=== PATIENT | male | born 1985 | race Caucasian/White ===

== ENCOUNTER 2017-04-29 06:17 | Emergency (ER) | payer OTHER ==
--- NOTE | 2017-04-29 08:12 | DIAGNOSTIC IMAGING REPORT ---
PROCEDURE: CT ABDOMEN/PELVIS W/O CONTRAST INDICATION: Left flank pain. TECHNIQUE: Noncontrast axial images were obtained of the entire abdomen and pelvis with sagittal and coronal reformations. COMPARISON: None. FINDINGS: ABDOMEN: 1.5 mm left UVJ calculus with mild left hydroureteronephrosis. No additional urinary calculi. Lung bases are clear. Normal heart size. Liver, gallbladder, pancreas, spleen, adrenal glands and abdominal aorta are normal. Nonspecific bowel gas pattern. PELVIS: Appendix not visualized. Normal prostate and bladder . Bones are unremarkable. IMPRESSION: 1. 1.5 mm left UVJ calculus with mild left hydroureteronephrosis 2. Results discussed with Dr. Murphy All CT scans at this facility use dose modulation, iterative reconstruction, and/or weight-based dosing when appropriate to reduce radiation dose to as low as reasonably achievable.
--- NOTE | 2017-04-29 08:44 | ED NURSING NOTES ---
Clinical Report - Nurses [facility] [address] [place] [address] 04/29/2017 6:18 Patient: STEF ARGUETA TRIAGE Triage time 06:29. Acuity: LEVEL 3. Chief Complaint: URINARY RETENTION. --06:32 Sheriff Cordero R.N. 06:25 04/29/17. BP: 193/35. HR: 78. RR: 18. O2 saturation: 99%. Temp: 97.7 F. Pain level now: 04/24. --06:32 Sheriff Cordero R.N. Weight: 95.2 kg stated. Height/Length: 70 inches Per Patient. BMI: 30.1. --06:29 Sheriff Cordero R.N. Medications None. --06:29 Sheriff Cordero R.N. Allergies No Known Drug Allergy. --06:30 Sheriff Cordero R.N. History Arrived by private vehicle. Historian: patient. Accompanied by family. Onset. (1 1/2 hours ago). SURGERY HX: No history of previous surgery. SOCIAL HX: Former smoker. Occasional alcohol use. No drug use. FALL RISK ASSESSMENT: Fall risk assessment completed. No fall risk identified. NUTRITIONAL RISK ASSESSMENT: The nutritional risk assessment revealed no deficiencies. FUNCTIONAL ASSESSMENT: Functional assessment: no impairments noted. LEARNING NEEDS ASSESSMENT: The learning needs assessment revealed no barriers. SKIN INTEGRITY ASSESSMENT: Skin integrity risk assessment completed. No skin integrity risk identified. --06:32 Sheriff Cordero R.N. PROBLEMS: Deaf. --06:31 Sheriff Cordero R.N. PHYSICAL ASSESSMENT Ambulatory to room. Patient gowned. GENERAL / NEURO / PSYCH: Alert. Oriented X 4. Appears anxious. HEENT: Mucous membranes are pink. RESPIRATORY: Respirations not labored. CVS: Capillary refill less than 2 seconds. SKIN: Skin is warm and dry. --06:32 Sheriff Cordero R.N. NURSING PROGRESS NOTES Head of bed elevated. Two patient identifiers checked. Call light placed in reach. Side rails up x 2. Bed placed in lowest position. Brakes of bed on. --06:32 Sheriff Cordero R.N. 06:56 04/29/2017 Site #1 started via IV in the right antecubital space with an 20g angiocath, with aseptic technique and good blood return; one attempt. Blood drawn: rainbow set. Labeled in the presence of the patient and sent to the lab. Saline lock flushed with 10 mL saline. --06:56 Sheriff Cordero R.N. 07:02 04/29/2017 Started bag #1 1000 mL IV Fluids IV NS (Saline); at 1000 mL/hr over 1 hour(s) via site #1 via IV pump. Allergies verified and confirmed 5 rights. IV patency established. IV site checked: no pain, redness, or swelling. IV flushed thoroughly pre- and post-medication administration. --07:02 Mary Lou Hsieh 07:02 04/29/2017 Toradol IVP 30 mg given over 1 minute(s) via site #1. Allergies verified and confirmed 5 rights. IV patency established. IV site checked: no pain, redness, or swelling. IV flushed thoroughly pre- and post-medication administration. IVP given by RN. --07:02 Mary Lou Hsieh 07:03 04/29/2017 Dilaudid (HYDROmorphone HCl PF) IVP 1 mg given over 2 minute(s) via site #1. Allergies verified, confirmed 5 rights and sedative warning given to the patient and patient's family. IV patency established. IV site checked: no pain, redness, or swelling. IV flushed thoroughly pre- and post-medication administration. IVP given by RN. --07:03 Mary Lou Hsieh 07:03 04/29/2017 Zofran (Ondansetron HCl) IVP 4 mg given over 1 minute(s) via site #1. Allergies verified and confirmed 5 rights. IV patency established. IV site checked: no pain, redness, or swelling. IV flushed thoroughly pre- and post-medication administration. IVP given by RN. --07:04 Mary Lou Hsieh 07:22 04/29/17. BP: 126/88. HR: 61. RR: 16. O2 saturation: 97% on room air. Pain level now: 0/10. --07:24 Paresh Barry R.N. The patient reports no complaints and he is calm and resting quietly. Overall patient status is improved- he states feels better. GI / : Denies abdominal pain. --07:24 Paresh Barry R.N. 09:05 04/29/2017 IV Fluids IV NS Discontinued: bag #1 infused upon discharge. Total amount infused: 1000 mL. IV patency established. IV site checked: no pain, redness, or swelling. IV flushed thoroughly. --09:20 Paresh Barry R.N. DISPOSITION / DISCHARGE 09:11 04/29/17. BP: 131/108. HR: 57. RR: 16. O2 saturation: 96%. Temp: 97.9 F. Pain level now 0/10. --09:18 Paresh Barry R.N. 09:04 04/29/2017 Site #1 removed upon discharge. Catheter intact. Bandage applied. --09:19 Paresh Barry R.N. 09:20 04/29/17. Condition at departure: improved and stable. No learning barriers present. Discharge instructions provided and reviewed with the patient and spouse. Reviewed medication(s) side effects, precautions, dosing and course information. Prescription(s) given to the patient. Work note given. Patient verbalized understanding. Written instructions provided in [place]. The patient was discharged by the physician. He was discharged home and accompanied by spouse. He left the Emergency Department ambulatory and via private vehicle. Spouse driving. --09:20 Paresh Barry R.N. Locked/Released at 04/30/2017 9:37 by Paresh Barry R.N.
--- NOTE | 2017-04-29 08:44 | ED ORDER SUMMARY ---
..... Patient: STEF ARGUETA OrderSheet [facility] VisitID: [id number] [place] [address] 31y, M Registration Date/Time: 04/29/2017 ORDER SHEET Weight: 95.2 kg (stated) Allergies: No Known Drug Allergy GENERAL ORDERS: UA-Culture if indicated Urgent (06:50 04/29/2017 Jazmyne CAMPBELL) (Ack 7:11 Jerry) CBC w Diff Urgent (06:50 04/29/2017 Jazmyne CAMPBELL) (Ack 7:11 Jerry) (7:21 KWilliams R.N.) CMP Urgent (06:50 04/29/2017 Jazmyne CAMPBELL) (Ack 7:11 Jerry) (7:21 KWilliams R.N.) Bladder Scan (06:50 04/29/2017 Jazmyne CAMPBELL) (Ack 7:48 LARRYilliams R.N.) CT Abd/Pel wo Cont Urgent (06:51 04/29/2017 Jazmyne CAMPBELL) (Ack 7:11 Jerry) (7:18 GUnger) MEDICATION ORDERS: IV FLUIDS: IV Saline Lock (06:50 04/29/2017 Jazmyne CAMPBELL) (6:56 SSambou R.N.) IV NS : initial bolus 1000 mL (1000 mL/hr), then 150 mL/hr for 4h (NOW); Routine (06:51 04/29/2017 Jazmyne CAMPBELL) (7:02 HSoule) Toradol IV 30 mg (NOW) (06:52 04/29/2017 Jazmyne CAMPBELL) (7:02 HSoule) Dilaudid IV 1 mg (NOW) (06:52 04/29/2017 Jazmyne CAMPBELL) (7:03 HSoule) Zofran IV 4 mg (NOW) (06:52 04/29/2017 Jazmyne CAMPBELL) (7:04 HSoule) ORDER SHEET NOTES: [Electronically signed by Paresh Barry R.N. (09:37 04/30/2017)] [Electronically signed by Tato Murphy MD (21:19 05/02/2017)] [Electronically locked/signed by Paresh Barry R.N. (09:37 04/30/2017)]
--- NOTE | 2017-04-29 08:44 | ED CLINICAL REPORT ---
Clinical Report - Physicians/Mid Levels [facility] [address] [place] [address] 04/29/2017 6:18 Patient: STEF ARGUETA Time Seen: 06:48 Apr 29 2017. Arrived- By private vehicle. Historian- patient. CPT: ER phys charges level 4 (#[id number]). HISTORY OF PRESENT ILLNESS Chief Complaint: ABDOMINAL PAIN. This started just prior to arrival and is still present. It is described as "pain" and it is described as located in the pelvic area, in the suprapubic area and in the left abdomen and the left flank. At its maximum, severity described as severe. When seen in the E.D., severity described as severe. Modifying factors. Not worsened by anything. Not relieved by anything. The patient has had nausea. No loss of appetite, vomiting or diarrhea. No recent travel. Similar symptoms previously: None. Recent medical care: Not recently seen/assessed. REVIEW OF SYSTEMS No constipation, black stools, hematemesis, difficulty with urination or pain with urination. No urinary frequency, fever, sore throat, chest pain or difficulty breathing. No cough, joint pain, skin rash or chills. The patient has had back pain. All systems otherwise negative, except as recorded above. PAST HISTORY Deaf. Additional Surgeries: no known surgeries. Medications: None. Allergies: No Known Drug Allergy. SOCIAL HISTORY Never smoker. Occasional alcohol use. No drug use. ADDITIONAL NOTES The nursing notes have been reviewed. PHYSICAL EXAM Vital Signs: 04/29/2017 06:25 BP: 193/35. HR: 78. RR: 18. O2 saturation: 99%. Temp: 97.7 F. Pain level now: 7/10. Appearance: Alert. Appears to be in pain. Patient in moderate distress. Eyes: Eyes normal inspection. ENT: Pharynx normal. Neck: Normal inspection. CVS: Normal heart rate and rhythm. Heart sounds normal. Pulses normal. Respiratory: No respiratory distress. Breath sounds normal. Chest nontender. Abdomen: Soft and nontender. Bowel sounds normal. Back: Normal inspection. No CVA tenderness. Skin: Skin warm. Normal skin color. No rash. Extremities: Extremities exhibit normal ROM. No lower extremity edema. Neuro: Oriented X 3. No motor deficit. No sensory deficit. Reflexes normal. LABS, X-RAYS, AND EKG Abdominal CT: A single urinary calculus is present in the left distal ureter (1.5 mm). There is mild obstruction. Hydronephrosis. Abdominal CT performed without contrast. The study was independently viewed by me, interpreted by the radiologist and discussed with the radiologist. Laboratory Tests: CBC w Diff: (JHONATAN: 04/29/2017 06:50) ( WigRcvd 04/29/2017 07:04) Final results Test Result Flag Units (Reference) WHITE BLOOD COUNT 10.5 K/uL (4.5-11.5) RED BLOOD COUNT 5.30 M/uL (4.50-5.90) HEMOGLOBIN 15.9 gm/dL (13.5-17.5) HEMATOCRIT 47.4 % (41.0-53.0) MEAN CELL VOLUME 89 fL (80-100) MEAN CORPUSCULAR HGB 30 pg (26-34) MEAN CORPUSCULAR HGB CONC 33 g/dL (31-37) RED CELL DISTRIBUTION WIDTH 13.3 % (11.6-14.8) PLATELET COUNT 330 K/uL (150-400) NEUTROPHIL % 62.6 % (50-75) LYMPH % 24.2 L % (25-40) MONO % 8.7 % (3-14) EOSINOPHIL % 4.1 H % (0-4) BASOPHIL % 0.4 % (0-2) CMP: (JHONATAN: 04/29/2017 06:50) ( MsgRcvd 04/29/2017 07:30) Final results Test Result Flag Units (Reference) GLUCOSE 103 mg/dL (70-110) BUN 14 mg/dL (7-18) CREATININE 0.9 mg/dL (0.6-1.3) Estimated GFR >60 mL/min Estimated GFR- >60 mL/min Note: Persistent reduction over 3 months in eGFR<60 mL/min/1.73 m2 defines CKD. Patients with eGFR values>=60 mL/min/1.73 m2 may also have CKD if evidence ofpersistent proteinuria. Additional information may be foundat www.kidney.org. SODIUM 140 mmol/L (136-145) POTASSIUM 4.0 mmol/L (3.5-5.1) CHLORIDE 106 mmol/L (98-107) CARBON DIOXIDE 26 mmol/L (21-32) CALCIUM 8.8 mg/dL (8.5-10.1) TOTAL PROTEIN 7.8 g/dL (6.4-8.2) ALBUMIN 4.1 g/dL (3.3-5.0) BILIRUBIN, TOTAL 0.5 mg/dL (0.0-1.0) ALKALINE PHOSPHATASE 57 U/L (46-116) AST (SGOT) 19 U/L (15-37) ALT (SGPT) 39 U/L (12-78) . PROGRESS AND PROCEDURES Course of Care: IV NS Toradol 30 mg IV Dilaudid 1 mg IV Zofran 4 mg IV Patient is stable. Symptoms much better. Patient/family counseled. Disposition: Discharged. Condition: stable and improved. CLINICAL IMPRESSION Ureterolithiasis (single stone) in the left ureter with renal colic and hydronephrosis. INSTRUCTIONS No strenuous activity. Do not work today, for one day until better. Drink plenty of fluids. Warnings: Further evaluation is necessary. SEDATIVE MEDICATION: You were given sedative medication during your visit. Do not drive or operate dangerous machinery. GENERAL WARNINGS: Return or contact your physician immediately if your condition worsens or changes unexpectedly, if not improving as expected, or if other problems arise. Prescription Medications: Zofran (orally disintegrating tablets) 4 mg: take 1 orally every 6 hours as needed for nausea. Dispense five (5). No refill. Oxycodone/APAP 5 mg/325 mg: take 1-2 tablets orally every 6 hours as needed for pain. Dispense ten (10). No refill. Follow-up: Follow up with your doctor in one week. Call for an appointment. Understanding of the discharge instructions verbalized by patient and family. (Electronically signed by Tato Murphy MD 05/02/2017 21:19)
--- NOTE | 2017-04-29 08:44 | ED ORDER SUMMARY ---
..... Patient: STEF ARGUETA OrderSheet [facility] VisitID: [id number] [place] [address] 31y, M Registration Date/Time: 04/29/2017 ORDER SHEET Weight: 95.2 kg (stated) Allergies: No Known Drug Allergy GENERAL ORDERS: UA-Culture if indicated Urgent (06:50 04/29/2017 Jazmyne CAMPBELL) (Ack 7:11 Jerry) CBC w Diff Urgent (06:50 04/29/2017 Jazmyne CAMPBELL) (Ack 7:11 Jerry) (7:21 KWilliams R.N.) CMP Urgent (06:50 04/29/2017 Jazmyne CAMPBELL) (Ack 7:11 Jerry) (7:21 KWilliams R.N.) Bladder Scan (06:50 04/29/2017 Jazmyne CAMPBELL) (Ack 7:48 LARRYilliams R.N.) CT Abd/Pel wo Cont Urgent (06:51 04/29/2017 Jazmyne CAMPBELL) (Ack 7:11 Jerry) (7:18 GUnger) MEDICATION ORDERS: IV FLUIDS: IV Saline Lock (06:50 04/29/2017 Jazmyne CAMPBELL) (6:56 SSambou R.N.) IV NS : initial bolus 1000 mL (1000 mL/hr), then 150 mL/hr for 4h (NOW); Routine (06:51 04/29/2017 Jazmyne CAMPBELL) (7:02 HSoule) Toradol IV 30 mg (NOW) (06:52 04/29/2017 Jazmyne CAMPBELL) (7:02 HSoule) Dilaudid IV 1 mg (NOW) (06:52 04/29/2017 Jazmyne CAMPBELL) (7:03 HSoule) Zofran IV 4 mg (NOW) (06:52 04/29/2017 Jazmyne CAMPBELL) (7:04 HSoule) ORDER SHEET NOTES: [Electronically signed by Paresh Barry R.N. (09:37 04/30/2017)] [Electronically signed by Tato Murphy MD (21:19 05/02/2017)] [Electronically locked/signed by Paresh Barry R.N. (09:37 04/30/2017)]
--- NOTE | 2017-04-29 08:44 | ED CLINICAL REPORT ---
Clinical Report - Physicians/Mid Levels [facility] [address] [place] [address] 04/29/2017 6:18 Patient: STEF ARGUETA Time Seen: 06:48 Apr 29 2017. Arrived- By private vehicle. Historian- patient. CPT: ER phys charges level 4 (#[id number]). HISTORY OF PRESENT ILLNESS Chief Complaint: ABDOMINAL PAIN. This started just prior to arrival and is still present. It is described as "pain" and it is described as located in the pelvic area, in the suprapubic area and in the left abdomen and the left flank. At its maximum, severity described as severe. When seen in the E.D., severity described as severe. Modifying factors. Not worsened by anything. Not relieved by anything. The patient has had nausea. No loss of appetite, vomiting or diarrhea. No recent travel. Similar symptoms previously: None. Recent medical care: Not recently seen/assessed. REVIEW OF SYSTEMS No constipation, black stools, hematemesis, difficulty with urination or pain with urination. No urinary frequency, fever, sore throat, chest pain or difficulty breathing. No cough, joint pain, skin rash or chills. The patient has had back pain. All systems otherwise negative, except as recorded above. PAST HISTORY Deaf. Additional Surgeries: no known surgeries. Medications: None. Allergies: No Known Drug Allergy. SOCIAL HISTORY Never smoker. Occasional alcohol use. No drug use. ADDITIONAL NOTES The nursing notes have been reviewed. PHYSICAL EXAM Vital Signs: 04/29/2017 06:25 BP: 193/35. HR: 78. RR: 18. O2 saturation: 99%. Temp: 97.7 F. Pain level now: 7/10. Appearance: Alert. Appears to be in pain. Patient in moderate distress. Eyes: Eyes normal inspection. ENT: Pharynx normal. Neck: Normal inspection. CVS: Normal heart rate and rhythm. Heart sounds normal. Pulses normal. Respiratory: No respiratory distress. Breath sounds normal. Chest nontender. Abdomen: Soft and nontender. Bowel sounds normal. Back: Normal inspection. No CVA tenderness. Skin: Skin warm. Normal skin color. No rash. Extremities: Extremities exhibit normal ROM. No lower extremity edema. Neuro: Oriented X 3. No motor deficit. No sensory deficit. Reflexes normal. LABS, X-RAYS, AND EKG Abdominal CT: A single urinary calculus is present in the left distal ureter (1.5 mm). There is mild obstruction. Hydronephrosis. Abdominal CT performed without contrast. The study was independently viewed by me, interpreted by the radiologist and discussed with the radiologist. Laboratory Tests: CBC w Diff: (JHONATAN: 04/29/2017 06:50) ( VtgRcvd 04/29/2017 07:04) Final results Test Result Flag Units (Reference) WHITE BLOOD COUNT 10.5 K/uL (4.5-11.5) RED BLOOD COUNT 5.30 M/uL (4.50-5.90) HEMOGLOBIN 15.9 gm/dL (13.5-17.5) HEMATOCRIT 47.4 % (41.0-53.0) MEAN CELL VOLUME 89 fL (80-100) MEAN CORPUSCULAR HGB 30 pg (26-34) MEAN CORPUSCULAR HGB CONC 33 g/dL (31-37) RED CELL DISTRIBUTION WIDTH 13.3 % (11.6-14.8) PLATELET COUNT 330 K/uL (150-400) NEUTROPHIL % 62.6 % (50-75) LYMPH % 24.2 L % (25-40) MONO % 8.7 % (3-14) EOSINOPHIL % 4.1 H % (0-4) BASOPHIL % 0.4 % (0-2) CMP: (JHONATAN: 04/29/2017 06:50) ( MsgRcvd 04/29/2017 07:30) Final results Test Result Flag Units (Reference) GLUCOSE 103 mg/dL (70-110) BUN 14 mg/dL (7-18) CREATININE 0.9 mg/dL (0.6-1.3) Estimated GFR >60 mL/min Estimated GFR- >60 mL/min Note: Persistent reduction over 3 months in eGFR<60 mL/min/1.73 m2 defines CKD. Patients with eGFR values>=60 mL/min/1.73 m2 may also have CKD if evidence ofpersistent proteinuria. Additional information may be foundat www.kidney.org. SODIUM 140 mmol/L (136-145) POTASSIUM 4.0 mmol/L (3.5-5.1) CHLORIDE 106 mmol/L (98-107) CARBON DIOXIDE 26 mmol/L (21-32) CALCIUM 8.8 mg/dL (8.5-10.1) TOTAL PROTEIN 7.8 g/dL (6.4-8.2) ALBUMIN 4.1 g/dL (3.3-5.0) BILIRUBIN, TOTAL 0.5 mg/dL (0.0-1.0) ALKALINE PHOSPHATASE 57 U/L (46-116) AST (SGOT) 19 U/L (15-37) ALT (SGPT) 39 U/L (12-78) . PROGRESS AND PROCEDURES Course of Care: IV NS Toradol 30 mg IV Dilaudid 1 mg IV Zofran 4 mg IV Patient is stable. Symptoms much better. Patient/family counseled. Disposition: Discharged. Condition: stable and improved. CLINICAL IMPRESSION Ureterolithiasis (single stone) in the left ureter with renal colic and hydronephrosis. INSTRUCTIONS No strenuous activity. Do not work today, for one day until better. Drink plenty of fluids. Warnings: Further evaluation is necessary. SEDATIVE MEDICATION: You were given sedative medication during your visit. Do not drive or operate dangerous machinery. GENERAL WARNINGS: Return or contact your physician immediately if your condition worsens or changes unexpectedly, if not improving as expected, or if other problems arise. Prescription Medications: Zofran (orally disintegrating tablets) 4 mg: take 1 orally every 6 hours as needed for nausea. Dispense five (5). No refill. Oxycodone/APAP 5 mg/325 mg: take 1-2 tablets orally every 6 hours as needed for pain. Dispense ten (10). No refill. Follow-up: Follow up with your doctor in one week. Call for an appointment. Understanding of the discharge instructions verbalized by patient and family. (Electronically signed by Tato Murphy MD 05/02/2017 21:19)
--- NOTE | 2017-05-02 21:19 | ED MED RECONCILIATION SUMMARY ---
Patient: STEF ARGUETA Medication Reconciliation Report [facility] VisitID: [id number] [place] [address] 31y, M Registration Date/Time: 04/29/2017 Weight: 95.2 kg Height/Length: 70 in. BMI: 30.1 ALLERGIES: No Known Drug Allergy The patient's Home Medications are listed below: NONE. The source(s) of the original Home Medication information: Not obtained. The following Medications were given to the patient in the Emergency Department: IV NS IV Fluids bolus 0, then 1000 mL/hr, administered: 04/29/2017 7:02:00 AM Toradol [IVP] IVP 30 mg, administered: 04/29/2017 7:02:00 AM Dilaudid [IVP] IVP 1 mg, administered: 04/29/2017 7:03:00 AM Zofran [IVP] IVP 4 mg, administered: 04/29/2017 7:03:00 AM The following Medications were prescribed to the patient: Zofran (orally disintegrating tablets) 4 mg: take 1 orally every 6 hours as needed for nausea. Dispense five (5). No refill. -- Tato Murphy MD Oxycodone/APAP 5 mg/325 mg: take 1-2 tablets orally every 6 hours as needed for pain. Dispense ten (10). No refill. -- Tato Murphy MD
--- NOTE | 2017-05-02 21:19 | ED MAR SUMMARY ---
..... Medication Administration Record [facility] [address] [place] [place] [address] Patient: STEF ARGUETA Visit ID: [id number] 31y, M Weight: 95.2 kg Height/Length: 70 in BMI: 30.1 ALLERGIES: No Known Drug Allergy Start 07:02 04/29/2017 Mary Lou Hsieh,, Stop 09:05 04/29/2017 Paresh Barry R.N. Medication Administered: IV NS (SALINE), Dose: IV Fluids over 1 hour(s), Rate: 1000 mL/hr, Dispensed: 1000 mL bag, Site: #1 right AC. Medication Ordered: IV NS : initial bolus 1000 mL (1000 mL/hr), then 150 mL/hr for 4h (NOW); Routine. Given 07:04/29/2017 Mary Lou Hsieh, Medication Administered: TORADOL [IVP], Dose: 30 mg IVP over 1 minute(s), Site: #1 right AC. Medication Ordered: Toradol IV 30 mg (NOW). Given 07:03 04/29/2017 Mary Lou Hsieh, Medication Administered: DILAUDID [IVP] (HYDROMORPHONE HCL PF), Dose: 1 mg IVP over 2 minute(s), Site: #1 right AC. Medication Ordered: Dilaudid IV 1 mg (NOW). Given 07:03 04/29/2017 Mary Lou Hsieh, Medication Administered: ZOFRAN [IVP] (ONDANSETRON HCL), Dose: 4 mg IVP over 1 minute(s), Site: #1 right AC. Medication Ordered: Zofran IV 4 mg (NOW).
--- NOTE | 2017-05-02 21:19 | ED MED RECONCILIATION SUMMARY ---
Patient: STEF ARGUETA Medication Reconciliation Report [facility] VisitID: [id number] [place] [address] 31y, M Registration Date/Time: 04/29/2017 Weight: 95.2 kg Height/Length: 70 in. BMI: 30.1 ALLERGIES: No Known Drug Allergy The patient's Home Medications are listed below: NONE. The source(s) of the original Home Medication information: Not obtained. The following Medications were given to the patient in the Emergency Department: IV NS IV Fluids bolus 0, then 1000 mL/hr, administered: 04/29/2017 7:02:00 AM Toradol [IVP] IVP 30 mg, administered: 04/29/2017 7:02:00 AM Dilaudid [IVP] IVP 1 mg, administered: 04/29/2017 7:03:00 AM Zofran [IVP] IVP 4 mg, administered: 04/29/2017 7:03:00 AM The following Medications were prescribed to the patient: Zofran (orally disintegrating tablets) 4 mg: take 1 orally every 6 hours as needed for nausea. Dispense five (5). No refill. -- Tato Murphy MD Oxycodone/APAP 5 mg/325 mg: take 1-2 tablets orally every 6 hours as needed for pain. Dispense ten (10). No refill. -- Tato Murphy MD
--- NOTE | 2017-05-02 21:19 | ED MAR SUMMARY ---
..... Medication Administration Record [facility] [address] [place] [address] Patient: STEF ARGUETA Visit ID: [id number] 31y, M Weight: 95.2 kg Height/Length: 70 in BMI: 30.1 ALLERGIES: No Known Drug Allergy Start 07:02 04/29/2017 Mary Lou Hsieh,, Stop 09:05 04/29/2017 Paresh Barry R.N. Medication Administered: IV NS (SALINE), Dose: IV Fluids over 1 hour(s), Rate: 1000 mL/hr, Dispensed: 1000 mL bag, Site: #1 right AC. Medication Ordered: IV NS : initial bolus 1000 mL (1000 mL/hr), then 150 mL/hr for 4h (NOW); Routine. Given 07:04/29/2017 Mary Lou Hsieh, Medication Administered: TORADOL [IVP], Dose: 30 mg IVP over 1 minute(s), Site: #1 right AC. Medication Ordered: Toradol IV 30 mg (NOW). Given 07:03 04/29/2017 Mary Lou Hsieh, Medication Administered: DILAUDID [IVP] (HYDROMORPHONE HCL PF), Dose: 1 mg IVP over 2 minute(s), Site: #1 right AC. Medication Ordered: Dilaudid IV 1 mg (NOW). Given 07:03 04/29/2017 Mary Lou Hsieh, Medication Administered: ZOFRAN [IVP] (ONDANSETRON HCL), Dose: 4 mg IVP over 1 minute(s), Site: #1 right AC. Medication Ordered: Zofran IV 4 mg (NOW).
--- NOTE | 2017-05-02 21:19 | ED DISCHARGE INSTRUCTIONS ---
Patient: STEF ARGUETA General Instructions [facility] VisitID: [id number] [place] [address] 31y, M Registration Date/Time: 04/29/2017 Ureterolithiasis (single stone) in the left ureter with renal colic and hydronephrosis. INSTRUCTIONS No strenuous activity. Do not work today, for one day until better. Drink plenty of fluids. Warnings: Further evaluation is necessary. SEDATIVE MEDICATION: You were given sedative medication during your visit. Do not drive or operate dangerous machinery. GENERAL WARNINGS: Return or contact your physician immediately if your condition worsens or changes unexpectedly, if not improving as expected, or if other problems arise. Prescription Medications: Zofran (orally disintegrating tablets) 4 mg: take 1 orally every 6 hours as needed for nausea. Dispense five (5). No refill. Oxycodone/APAP 5 mg/325 mg: take 1-2 tablets orally every 6 hours as needed for pain. Dispense ten (10). No refill. Follow-up: Follow up with your doctor in one week. Call for an appointment. Understanding of the discharge instructions verbalized by patient and family. ADDITIONAL INFORMATION Kidney Stone (W/ Colic) The sharp cramping pain and nausea/vomiting that you have is due to a small stone which has formed in the kidney and is now passing down a narrow tube (ureter) on its way to your bladder. Once it reaches your bladder, the pain will stop. The stone may pass in your urine stream in one piece. [The size may be 1/16" to 1/4" (1-6mm)]. Or, the stone may also break up into christina fragments which you may not even notice. Once you have had a kidney stone, you are at risk for developing another one in the future. Home Care: Drink plenty of fluids (at least 8 to 10 glasses of water a day). Most stones will pass on their own, but may take from a few hours to a few days. Sometimes the stone is too large to pass by itself and special methods will have to be used to remove the stone. Each time you urinate, do so in a jar. Pour the urine from the jar through the strainer and into the toilet. Continue doing this until 24 hours after your pain stops. By then, if there was a kidney stone, it should pass from your bladder. Some stones dissolve into sand-like particles and pass right through the strainer. In that case, you wont ever see a stone. Save any stone that you find in the strainer and bring it to your doctor for analysis. It may be possible to prevent certain types of stones from forming. Therefore, it is important to know what kind of stone you have. Try to stay as active as possible since this will help the stone pass. Do not stay in bed unless your pain prevents you from getting up. You may notice a red, pink or brown color to your urine. This is normal while passing a kidney stone. Follow Up with your doctor or return to this facility if the pain lasts more than 48 hours. Get Prompt Medical Attention if any of the following occur: Pain that is not controlled by the medicine given Repeated vomiting or unable to keep down fluids Weakness, dizziness or fainting Fever of 100.4F (38C) or higher, or as directed by your healthcare provider Passage of solid red or brown urine (can't see through it) or urine with lots of blood clots Unable to pass urine for 8 hours and increasing bladder pressure Ondansetron Oral disintegrating tablet What is this medicine? ONDANSETRON (on SHELTON se elaine) is used to treat nausea and vomiting caused by chemotherapy. It is also used to prevent or treat nausea and vomiting after surgery. How should I use this medicine? These tablets are made to dissolve in the mouth. Do not try to push the tablet through the foil backing. With dry hands, peel away the foil backing and gently remove the tablet. Place the tablet in the mouth and allow it to dissolve, then swallow. While you may take these tablets with water, it is not necessary to do so. Talk to your marketing technology coordinator regarding the use of this medicine in children. Special care may be needed. What side effects may I notice from receiving this medicine? Side effects that you should report to your doctor or health critical care nurse practitioner as soon as possible: allergic reactions like skin rash, itching or hives, swelling of the face, lips, or tongue breathing problems dizziness fast or irregular heartbeat feeling faint or lightheaded, falls fever and chills swelling of the hands and feet tightness in the chest Side effects that usually do not require medical attention (report to your doctor or health critical care nurse practitioner if they continue or are bothersome): constipation or diarrhea headache What may interact with this medicine? Do not take this medicine with any of the following medications: -apomorphine -cisapride -dofetilide -dronedarone -pimozide -thioridazine -ziprasidone This medicine may also interact with the following medications: -carbamazepine -phenytoin -rifampicin -tramadol -other medicines that prolong the QT interval (cause an abnormal heart rhythm) What if I miss a dose? If you miss a dose, take it as soon as you can. If it is almost time for your next dose, take only that dose. Do not take double or extra doses. Where should I keep my medicine? Keep out of the reach of children. Store between 2 and 30 degrees C (36 and 86 degrees F). Throw away any unused medicine after the expiration date. What should I tell my health care provider before I take this medicine? They need to know if you have any of these conditions: heart disease history of irregular heartbeat liver disease low levels of magnesium or potassium in the blood an unusual or allergic reaction to ondansetron, granisetron, other medicines, foods, dyes, or preservatives or trying to get breast-feeding What should I watch for while using this medicine? Check with your doctor or health critical care nurse practitioner as soon as you can if you have any sign of an allergic reaction. Oxycodone Hydrochloride, Acetaminophen Oral tablet What is this medicine? ACETAMINOPHEN; OXYCODONE (a set a ROBERT dell fen; ox i KOE done) is a pain reliever. It is used to treat mild to moderate pain. How should I use this medicine? Take this medicine by mouth with a full glass of water. Follow the directions on the prescription label. Take your medicine at regular intervals. Do not take your medicine more often than directed. Talk to your marketing technology coordinator regarding the use of this medicine in children. Special care may be needed. Patients over 65 years old may have a stronger reaction and need a smaller dose. What side effects may I notice from receiving this medicine? Side effects that you should report to your doctor or health critical care nurse practitioner as soon as possible: allergic reactions like skin rash, itching or hives, swelling of the face, lips, or tongue breathing difficulties, wheezing confusion light headedness or fainting spells severe stomach pain yellowing of the skin or the whites of the eyes Side effects that usually do not require medical attention (report to your doctor or health critical care nurse practitioner if they continue or are bothersome): dizziness drowsiness nausea vomiting What may interact with this medicine? alcohol antihistamines barbiturates like amobarbital, butalbital, butabarbital, methohexital, pentobarbital, phenobarbital, thiopental, and secobarbital benztropine drugs for bladder problems like solifenacin, trospium, oxybutynin, tolterodine, hyoscyamine, and methscopolamine drugs for breathing problems like ipratropium and tiotropium drugs for certain stomach or intestine problems like propantheline, homatropine methylbromide, glycopyrrolate, atropine, belladonna, and dicyclomine general anesthetics like etomidate, ketamine, nitrous oxide, propofol, desflurane, enflurane, halothane, isoflurane, and sevoflurane medicines for depression, anxiety, or psychotic disturbances medicines for sleep muscle relaxants naltrexone narcotic medicines (opiates) for pain phenothiazines like perphenazine, thioridazine, chlorpromazine, mesoridazine, fluphenazine, prochlorperazine, promazine, and trifluoperazine scopolamine tramadol trihexyphenidyl What if I miss a dose? If you miss a dose, take it as soon as you can. If it is almost time for your next dose, take only that dose. Do not take double or extra doses. Where should I keep my medicine? Keep out of the reach of children. This medicine can be abused. Keep your medicine in a safe place to protect it from theft. Do not share this medicine with anyone. Selling or giving away this medicine is dangerous and against the law. Store at room temperature between 20 and 25 degrees C (68 and 77 degrees F). Keep container tightly closed. Protect from light. This medicine may cause accidental overdose and if it is taken by other adults, children, or pets. Flush any unused medicine down the toilet to reduce the chance of harm. Do not use the medicine after the expiration date. What should I tell my health care provider before I take this medicine? They need to know if you have any of these conditions: brain tumor Crohn's disease, inflammatory bowel disease, or ulcerative colitis drink more than 3 alcohol containing drinks per day drug abuse or addiction head injury heart or circulation problems kidney disease or problems going to the bathroom liver disease lung disease, asthma, or breathing problems an unusual or allergic reaction to acetaminophen, oxycodone, other opioid analgesics, other medicines, foods, dyes, or preservatives or trying to get breast-feeding What should I watch for while using this medicine? Tell your doctor or health critical care nurse practitioner if your pain does not go away, if it gets worse, or if you have new or a different type of pain. You may develop tolerance to the medicine. Tolerance means that you will need a higher dose of the medication for pain relief. Tolerance is normal and is expected if you take this medicine for a long time. Do not suddenly stop taking your medicine because you may develop a severe reaction. Your body becomes used to the medicine. This does NOT mean you are addicted. Addiction is a behavior related to getting and using a drug for a non-medical reason. If you have pain, you have a medical reason to take pain medicine. Your doctor will tell you how much medicine to take. If your doctor wants you to stop the medicine, the dose will be slowly lowered over time to avoid any side effects. You may get drowsy or dizzy. Do not drive, use machinery, or do anything that needs mental alertness until you know how this medicine affects you. Do not stand or sit up quickly, especially if you are an older patient. This reduces the risk of dizzy or fainting spells. Alcohol may interfere with the effect of this medicine. Avoid alcoholic drinks. There are different types of narcotic medicines (opiates) for pain. If you take more than one type at the same time, you may have more side effects. Give your health care provider a list of all medicines you use. Your doctor will tell you how much medicine to take. Do not take more medicine than directed. Call emergency for help if you have problems breathing. The medicine will cause constipation. Try to have a bowel movement at least every 2 to 3 days. If you do not have a bowel movement for 3 days, call your doctor or health critical care nurse practitioner. Do not take Tylenol (acetaminophen) or medicines that have acetaminophen with this medicine. Too much acetaminophen can be very dangerous. Many nonprescription medicines contain acetaminophen. Always read the labels carefully to avoid taking more acetaminophen. You have been given the following additional information: Kidney Stone W/ Colic Ondansetron Oral disintegrating tablet Oxycodone Hydrochloride, Acetaminophen Oral tablet No strenuous activity. Do not work today, for one day until better. (Electronically signed by Tato Murphy MD 05/02/2017 21:19)
== END 2017-04-29 09:11 | disposition home or self-care (01) ==
LOC: ED SRH 06:17
DX: N20.1 Calculus of ureter (principal); N13.2 Hydronephrosis with renal and ureteral calculous obstruction; N23 Unspecified renal colic
CPT/HCPCS: 90100; 95059